=== PATIENT | female | born 1950 | race Caucasian/White ===

== ENCOUNTER 2016-10-02 09:45 | Outpatient (CLI) | payer MEDICARE, OTHER ==
[2014-06-30 14:31] VITALS: BP 121/68
== END 2016-10-02 09:46 ==
LOC: LAB 09:45
PROVIDERS: ATTEND Family Medicine
DX: M79.675 Pain in left toe(s) (principal)
CPT/HCPCS: 36415; 84550

== ENCOUNTER 2017-03-03 08:02 | Day surgery (SDC) | payer MEDICARE, OTHER ==
[2014-06-30 14:31] VITALS: BP 121/68
[~2017-03-03 08:02] MED LIST: LACTATED RINGERS 1,000 ML IV.SOLN IV ONE; PROPOFOL 200 MG/20 ML VIAL IV ONE; SALINE FLUSH 10 ML DISP.SYRIN IVF ONE
--- NOTE | 2017-03-03 14:42 | GI Report ---
REFERRING PHYSICIAN: Dr. Gladys Hi [employer]ER: Phil Goldberg MD PROCEDURE MEDICATION: Propofol as per anesthesia. INDICATIONS: This 66-year-old woman had an adenomatous polyp removed from her colon in [place] in 2008 and a follow-up colonoscopy in 2009 that was okay. She also has had a history of breast cancer. She denies changes in bowel habits or blood in the stool. This is a high risk follow up colonoscopy for surveillance. PROCEDURE PERFORMED: Colonoscopy. PROCEDURE: An Olympus video colonoscope was advanced through the rectum. A slightly atonic redundant colon. We did advance to the cecum. The appendiceal orifice was seen. Near the appendiceal orifice, there was a 2 to 3 mm flat polyp that was cold biopsied removed and submitted to pathology. The terminal ileum looks normal. The main part of the ascending colon and transverse colon with no obvious intraluminal lesions noted. The descending colon and sigmoid with some redundancy, no obvious intraluminal lesions were noted. Retroflexion of the rectum was normal. There was no evidence of any polyp noted there. Patient tolerated the procedure well. FINDINGS: Small cecal polyp that was cold biopsy removed in 2 pieces. RECOMMENDATIONS: 1. A high-fiber diet. 2. Pending the pathology of the polyp, consider re-looking at her colon in 5 years. cc: Dr. Gladys GARCIA
== END 2017-03-03 08:03 ==
LOC: OPSURG 08:02
PROVIDERS: ATTEND Internal Medicine Gastroenterology
DX: Z12.11 Encounter for screening for malignant neoplasm of colon (principal); D12.0 Benign neoplasm of cecum; Z85.3 Personal history of malignant neoplasm of breast
CPT/HCPCS: 45380; 88305; J2704; J7120; S1016

== ENCOUNTER 2017-04-24 10:56 | Outpatient (CLI) | payer MEDICARE, OTHER ==
[2014-06-30 14:31] VITALS: BP 121/68
== END 2017-04-24 11:26 ==
LOC: LAB 10:56
PROVIDERS: ATTEND Family Medicine
DX: E03.9 Hypothyroidism, unspecified (principal)
CPT/HCPCS: 36415; 84443

== ENCOUNTER 2017-08-08 22:46 | Emergency (ER) | payer MEDICARE, OTHER ==
[2017-08-09] MEDS: MECLIZINE HCL 25 MG TABLET PO ONE (00:10)
[2017-08-09] MEDS: 0.9 % SODIUM CHLORIDE 1,000 ML IV SCH (00:20)
[2017-08-09 00:33] LABS: BASOPHILS % 0.5 (0.0-1.5); EOSINOPHILS % 2.9 % (0.0-6.8); MEAN CORPUSCULAR HEMOGLOBIN 30.2 pg (28.0-34.0); MEAN CORPUSCULAR VOLUME 91.4 fl (80.0-100.0); MONOCYTES % 4.9 % (0.0-11.0); NEUTROPHILS # 7.1 # k/uL (1.4-7.7)
[2017-08-09 00:39] LABS: eGFR (African) > 60; eGFR (Non-African) > 60
--- NOTE | 2017-08-09 01:28 | ED Physician Documentation ---
Dizziness - HISTORIAN Historian: patient - HPI Stated Complaint: dizziness Chief Complaint: Dizziness Additional Information: last 2-3 days Timing: sudden onset Duration: persistent Last known Well Date: 08/06/17 Last Known Well Time: 00:00 Severity: moderate Associated Symptoms: vestibular Decreased Ability to Stand/ Walk: off balance Usually: walks w/o assistance Worsened By: changing position Further Comments: no - ROS CONST: no problems EYES/ENT: none GI/: none LNMP: post menopausal MS/SKIN/LYMPH: none NEURO/PSYCH: none CVS/RESP: none - PAST HX Past History: hypertension, other (breast ca, hypothyroidism) Surgeries/Procedures: hysterectomy, other (mastectomy) Immunizations: referred to PCP Allergies/Adverse Reactions: Allergies Allergy/AdvReac Type Severity Reaction Status Date / Time No Known Allergies Allergy Verified 08/08/17 23:05 - SOCIAL HX Smoking History: non-smoker Alcohol Use: occasionally Drug Use: none - FAMILY HX Family History: none - VITAL SIGNS Vital Signs: Vital Signs Temp Pulse Resp BP Pulse Ox 98.1 F 113 H 16 182/85 99 08/08/17 22:50 08/09/17 00:00 08/08/17 22:50 08/09/17 00:00 08/08/17 22:50 - REVIEWED ASSESSMENTS Nursing Assessment Reviewed: Yes Vitals Reviewed: Yes Progress - Results/Orders Results/Orders: ct head, cbc, cmp, ua, ekg, orthostatics ordered - Progress Progress: pt. given 1 liter ns and 25 mg meclizine p.o. in er with improvement in symptoms. Took 50 mg of atentolol p.o. in er under my direction reducing bp to 147/82. Critical Care Note - Critical Care Note Total Time (mins): 0 ED Results Lab/Radiology - Lab Results Lab Results: Lab Results 08/08/17 08/08/17 00:28 00:27 WBC 10.10 K/ul K/ul (4.00-12.00) RBC 5.12 M/ul M/ul (3.90-5.20) Hgb 15.5 g/dL g/dL (12.0-16.0) Hct 46.8 % H % (34.5-46.5) MCV 91.4 fl fl (80.0-100.0) MCH 30.2 pg pg (28.0-34.0) MCHC 33.1 g/dL g/dL (30.0-36.0) RDW 12.9 % % (11.3-14.3) Plt Count 260 K/mm3 K/mm3 (130-400) Neut % (Auto) 69.9 % % (39.0-79.0) Lymph % (Auto) 20.1 % % (16.0-50.0) Turner % (Auto) 4.9 % % (0.0-11.0) Eos % (Auto) 2.9 % % (0.0-6.8) Baso % (Auto) 0.5 (0.0-1.5) Neut # (Auto) 7.1 # k/uL # k/uL (1.4-7.7) Lymph # (Auto) 2.0 # k/uL # k/uL (0.6-4.0) Turner # (Auto) 0.5 # k/uL # k/uL (0.0-0.9) Eos # (Auto) 0.3 # k/uL # k/uL (0.0-0.6) Baso # (Auto) 0.0 # k/uL # k/uL (0.0-0.5) Reactive Lymphs % 1.6 % % (0.0-5.0) Reactive Lymphs # 0.2 # k/uL # k/uL (0.0-0.8) Sodium 143 mmol/L mmol/L (136-145) Potassium 3.6 mmol/L mmol/L (3.5-5.1) Chloride 101 mmol/L mmol/L (98-107) Carbon Dioxide 30 mmol/L mmol/L (22-30) BUN 12 mg/dL mg/dL (7-17) Creatinine 0.80 mg/dL mg/dL (0.52-1.04) Estimated Creat Clear 107 Est GFR ( Amer) > 60 (60 - ) Est GFR (Non-Af Amer) > 60 (60 - ) Glucose 110 mg/dL H mg/dL (74-106) Calcium 9.5 mg/dL mg/dL (8.4-10.2) Total Bilirubin 0.7 mg/dL mg/dL (0.2-1.3) AST 42 U/L U/L (15-46) ALT 42 U/L U/L (13-69) Alkaline Phosphatase 91 U/L U/L (38-126) Total Protein 7.9 g/dL g/dL (6.3-8.2) Albumin 4.3 g/dL g/dL (3.5-5.0) - Radiology Radiology Impressions: ct head neg - Orders Orders: ED Orders Category Date Time Status Further Nursing Orders 1T Care 08/08/17 23:56 Inactive Orthostatics 1T Care 08/09/17 00:[address] IV Lock 1T Care 08/08/17 23:[address] BRAIN W/O CONTRAST Stat Exams 08/08/17 Taken CBC/PLATELET/DIFF Routine Lab 08/08/17 00:28 Completed CMP Routine Lab 08/08/17 00:27 Completed URINALYSIS Routine Lab 08/08/17 23:55 Ordered 0.9 % Sodium Chloride [Normal Saline] 1,000 ml Med 08/08/17 23:45 Ordered IV .Q1H Meclizine HCl [Antivert] Med 08/08/17 23:58 Discontinued 25 mg PO NOW ONE EKG WITH COMPARISON Routine Ther 08/09/17 Ordered Dizziness Physical Exam - Physical Exam General Appearance: mild distress EENT: eye inspection normal, ENT inspection normal, pharynx normal, no signs of dehydration, MIGUEL, no nystagmus, TM's nml Neck: normal inspection, thyroid normal, supple Respiratory: no respiratory distress, breath sounds nml, chest non-tender CVS: reg rate & rhythm, heart sounds normal, equal pulses, no murmur Abdomen: soft, no organomegaly, normal bowel sounds, no abdominal bruit, no distension, non-tender Skin: warm/dry, normal color Neuro: nml orientation, nml speech, nml cognition, mood/affect nml, slow responsiveness Extremities: non-tender, normal range of motion, no evidence of injury, no edema Cranial: nml as tested, no evidence of acute CVA Cerebellar: nml as tested Sensorimotor: motor nml, sensation nml Discharge Clincal Impression: Menieres disease Qualifiers: Laterality: bilateral Qualified Code(s): H81.03 - Meniere's disease, bilateral Referrals: Gladys Hi MD [Primary Care Provider] - 2 Days Comments: Discharged in stable and improved condition with script for meclizine 25 mg 1 p.o. tid for next 4 days then prn. Condition: Stable Disposition: 01 HOME, SELF-CARE Decision to Admit: NO Decision Time: 01:28
[2017-08-09 01:38] VITALS: BP 133/71
[2017-08-09] MEDS: 0.9 % SODIUM CHLORIDE 1,000 ML IV ONE (01:38)
--- NOTE | 2017-08-09 01:46 | Diagnostic Imaging Report ---
SUKUMAR HIGHTOWER [facility] [address] [facility] [address] [place] [address]. [id number] Report Submission Date: Aug 09, 2017 12:36:34 AM PATTERN RULER Patient Study Name: SABA CM L Date: Aug 09, 2017 12:18:56 AM PATTERN RULER Modality Type: CT\SR Gender: F Description: CT BRAIN W/O : 50 Institution: [facility] Physician: SUKUMAR HIGHTOWER Computed tomography of the head without contrast History: 1 day of vertigo Findings: Transverse brain sections are obtained without contrast revealing mild global atrophy. Hayes white differentiation is intact. There is no intracranial hemorrhage, mass effect, fluid collection, or skull lesion. Visualized sinuses and mastoid air cells are clear. Impression: Mild atrophy. Electronically signed on Aug 09, 2017 12:36:34 AM PATTERN RULER by: Evangelista GARCIA
== END 2017-08-09 01:35 | disposition home or self-care (01) ==
LOC: ED 22:46
DX: H81.03 Meniere's disease, bilateral (principal); I10 Essential (primary) hypertension; E03.9 Hypothyroidism, unspecified; C50.919 Malignant neoplasm of unspecified site of unspecified female breast
CPT/HCPCS: 70450; 80053; 85025; 93005; J7030; 96365; 99283; S1016

== ENCOUNTER 2019-04-26 10:04 | Outpatient (CLI) | payer MEDICARE, OTHER ==
[2019-04-26 14:07] LABS: TSH 1.06 mIU/l (0.465-4.685)
== END 2019-04-26 10:09 ==
LOC: LAB 10:04
PROVIDERS: ATTEND Family Medicine
DX: E03.9 Hypothyroidism, unspecified (principal); R20.2 Paresthesia of skin
CPT/HCPCS: 36415; 82607; 84443; 84550